=== PATIENT | male | born 1990 | race African-American/Black ===

== ENCOUNTER 2017-12-15 14:02 | Emergency (ER) | payer OTHER ==
[~2017-12-15] VITALS: Ht 182.9 cm; Wt 68.0 kg
[2017-12-15] MEDS ORDERED: IV NORMAL SALINE 1000ML BAG 1,000 ML IV ONE (14:15)
[2017-12-15 14:24] LABS: BASO % 1 % (0-3); EOS % 0 % (0-3); HEMATOCRIT 40.2 % (39.0-53.0); HEMOGLOBIN 14.2 g/dL (13.0-17.5); LYMPH # 0.6 x10^3/uL (1.0-4.8); LYMPH % 10 % (24-48); MEAN CORPUSCULAR HEMOGLOBIN 33 pg (25-35); MEAN CORPUSCULAR HGB CONC 35 g/dL (31-37); MEAN CORPUSCULAR VOLUME 94 fL (79-100); MONO # 0.3 x10^3/uL (0.0-1.1); MONO % 5 % (0-9); NEUT # 5.1 x10^3uL (1.8-7.7); NEUT % 85 % (31-73); PLATELET COUNT 170 x10^3/uL (140-400); RED BLOOD COUNT 4.29 x10^6/uL (4.30-5.70); RED CELL DISTRIBUTION WIDTH 14.1 % (11.5-14.5)
[2017-12-15 14:32] LABS: CALCIUM 8.8 mg/dL (8.5-10.1); GFR 108.5; POTASSIUM 4.2 mmol/L (3.5-5.1)
[2017-12-15 14:39] LABS: ALBUMIN 3.6 g/dL (3.4-5.0); ALBUMIN/GLOBULIN RATIO 1.3 (1.0-1.7); TOTAL BILIRUBIN 0.7 mg/dL (0.2-1.0); TOTAL PROTEIN 6.4 g/dL (6.4-8.2)
--- NOTE | 2017-12-15 15:14 | RAD ---
CT head and cervical spine without contrast 12/15/2017 Clinical indications: New onset seizure. COMPARISON: None. TECHNIQUE: Multiple CT images of the head and cervical spine were obtained without contrast. *One or more of the following individualized dose reduction techniques were utilized for this examination: 1. Automated exposure control. 2. Adjustment of the mA and/or kV according to patient size. 3. Use of iterative reconstruction technique. FINDINGS: Head: No acute intracranial hemorrhage or extra-axial fluid collection. No midline shift. The stevens-white matter interfaces are maintained. The ventricles and subarachnoid spaces are normal in size and configuration for age. The visualized mastoid air cells and paranasal sinuses are well aerated. Cervical spine: No acute cervical spine fracture or traumatic malalignment. There is minimal rightward curvature, may be positional. Atlantoaxial articulation is maintained. Vertebral body heights and disc spaces are preserved. The paraspinal soft tissues are unremarkable. IMPRESSION: Head: No acute intracranial hemorrhage. Cervical spine: No acute cervical spine fracture or traumatic malalignment. Electronically signed by: Christian He MD (12/15/2017 3:10 PM) [id number]
[2017-12-15 15:38] LABS: BARBITURATES NEG (NEG); BENZODIAZEPINES NEG (NEG); CANNABINOIDS NEG (NEG); COCAINE NEG (NEG); METHADONE NEG (NEG); OPIATES NEG (NEG); PHENCYCLIDINE NEG (NEG)
[2017-12-15 15:40] LABS: AMPHETAMINE/METHAMPHETAMINE NEG (NEG)
--- NOTE | 2017-12-15 15:57 | PHYS DOC ---
Past Medical History Past Medical History: No Pertinent History Past Surgical History: No Surgical History Alcohol Use: None Drug Use: None Adult General Chief Complaint Chief Complaint: SEIZURE HPI HPI Patient is a 27 year old male presenting with seizure. Brought in by ambulance had a witnessed 7 minute seizure at the [facility]. Apparently according to the report that I received from the medics the patient did tell a staff member at the [facility] that he was high however then when he came out of the seizure he then denied it Unknown if there was any drug use definitively. No previous seizure history. Patient denies any pain or symptoms at this time he did bump his head so c- collar was placed no previous history of seizures Review of Systems Review of Systems Constitutional: Denies fever or chills [] Eyes: Denies change in visual acuity, redness, or eye pain [] HENT: Denies nasal congestion or sore throat [] Respiratory: Denies cough or shortness of breath [] Cardiovascular: No additional information not addressed in HPI [] Musculoskeletal: Denies back pain or joint pain [] Integument: Denies rash or skin lesions [] Neurologic: Denies headache, focal weakness or sensory changes [] All other systems were reviewed and found to be within normal limits, except as documented in this note. Current Medications Current Medications Current Medications Medications (Trade) Dose Ordered Sig/Maco Start Time Stop Time Status Last Admin Dose Admin Lorazepam (Ativan) 1 mg 1X ONCE 12/15/17 14:15 12/15/17 14:26 DC 12/15/17 14:49 1 MG Sodium Chloride 1,000 ml @ 1,000 mls/hr 1X ONCE 12/15/17 14:15 12/15/17 15:14 DC 12/15/17 14:49 1,000 MLS/HR Allergies Allergies Allergies Coded Allergies Type Severity Reaction Last Updated Verified No Known Drug Allergies 12/15/17 No Physical Exam Physical Exam Constitutional: Well developed, well nourished, no acute distress, non-toxic appearance. [] HENT: Normocephalic, contusion noted to the forehead c-collar is in place, bilateral external ears normal, oropharynx moist, no oral exudates, nose normal. [] Eyes: PERRLA, EOMI, conjunctiva normal, no discharge. [] Neck: Normal range of motion after the c-collar was removed Pulmonary: Normal respiratory effort no increased work of breathing no obvious chest wall trauma Abdomen: Bowel sounds normal, soft, no tenderness, no masses, no pulsatile masses. [] Skin: Warm, dry, no erythema, no rash. [] Back: No tenderness, no CVA tenderness. [] Extremities: No tenderness, no cyanosis, no clubbing, ROM intact, no edema. [] Neurologic: Alert and oriented X 3, normal motor function, normal sensory function, no focal deficits noted. [] Psychologic: Affect normal, judgement normal, mood normal. [] Current Patient Data Vital Signs Vital Signs Date Time Temp Pulse Resp B/P (MAP) Pulse Ox O2 Delivery O2 Flow Rate FiO2 12/15/17 14:02 98.6 76 20 90/49 (63) 97 Room Air 98.6 Lab Values Laboratory Tests Test 12/15/17 14:14 12/15/17 15:21 White Blood Count 6.0 x10^3/uL (4.0-11.0) Red Blood Count 4.29 x10^6/uL (4.30-5.70) L Hemoglobin 14.2 g/dL (13.0-17.5) Hematocrit 40.2 % (39.0-53.0) Mean Corpuscular Volume 94 fL (79-100) Mean Corpuscular Hemoglobin 33 pg (25-35) Mean Corpuscular Hemoglobin Concent 35 g/dL (31-37) Red Cell Distribution Width 14.1 % (11.5-14.5) Platelet Count 170 x10^3/uL (140-400) Neutrophils (%) (Auto) 85 % (31-73) H Lymphocytes (%) (Auto) 10 % (24-48) L Monocytes (%) (Auto) 5 % (0-9) Eosinophils (%) (Auto) 0 % (0-3) Basophils (%) (Auto) 1 % (0-3) Neutrophils # (Auto) 5.1 x10^3uL (1.8-7.7) Lymphocytes # (Auto) 0.6 x10^3/uL (1.0-4.8) L Monocytes # (Auto) 0.3 x10^3/uL (0.0-1.1) Eosinophils # (Auto) 0.0 x10^3/uL (0.0-0.7) Basophils # (Auto) 0.0 x10^3/uL (0.0-0.2) Sodium Level 142 mmol/L (136-145) Potassium Level 4.2 mmol/L (3.5-5.1) Chloride Level 105 mmol/L (98-107) Carbon Dioxide Level 28 mmol/L (21-32) Anion Gap 9 (6-14) Blood Urea Nitrogen 9 mg/dL (8-26) Creatinine 1.0 mg/dL (0.7-1.3) Estimated GFR (Cockcroft-Gault) 108.5 BUN/Creatinine Ratio 9 (6-20) Glucose Level 115 mg/dL (70-99) H Calcium Level 8.8 mg/dL (8.5-10.1) Total Bilirubin 0.7 mg/dL (0.2-1.0) Aspartate Amino Transferase (AST) 21 U/L (15-37) Alanine Aminotransferase (ALT) 24 U/L (16-63) Alkaline Phosphatase 46 U/L (46-116) Total Protein 6.4 g/dL (6.4-8.2) Albumin 3.6 g/dL (3.4-5.0) Albumin/Globulin Ratio 1.3 (1.0-1.7) Ethyl Alcohol Level < 10 mg/dL (0-10) Urine Opiates Screen Neg (NEG) Urine Methadone Screen Neg (NEG) Urine Barbiturates Neg (NEG) Urine Phencyclidine Screen Neg (NEG) Urine Amphetamine/Methamphetamine Neg (NEG) Urine Benzodiazepines Screen Neg (NEG) Urine Cocaine Screen Neg (NEG) Urine Cannabinoids Screen Neg (NEG) Urine Ethyl Alcohol Neg (NEG) Laboratory Tests 12/15/17 14:14 Laboratory Tests 12/15/17 14:14 EKG EKG [] Radiology/Procedures Radiology/Procedures [] Impressions: FINDINGS: Head: No acute intracranial hemorrhage or extra-axial fluid collection. No midline shift. The stevens-white matter interfaces are maintained. The ventricles and subarachnoid spaces are normal in size and configuration for age. The visualized mastoid air cells and paranasal sinuses are well aerated. Cervical spine: No acute cervical spine fracture or traumatic malalignment. There is minimal rightward curvature, may be positional. Atlantoaxial articulation is maintained. Vertebral body heights and disc spaces are preserved. The paraspinal soft tissues are unremarkable. IMPRESSION: Head: No acute intracranial hemorrhage. Cervical spine: No acute cervical spine fracture or traumatic malalignment. Electronically signed by: Estiven He MD (12/15/2017 3:10 PM) [id number] DICTATED and SIGNED BY: ESTIVEN HE MD DATE: 12/15/17 1507 Course & Med Decision Making Course & Med Decision Making Pertinent Labs and Imaging studies reviewed. (See chart for details) []Labs unremarkable patient is calm and cooperative while in the emergency room CT head was negative. This was a new seizure. The patient is incarcerated. I did instruct the patient that he is not allowed to drive until cleared by a neurologist in the future. Because of her seizure and there is a possible history of drug abuse of note the drug screen did come back negative but there are several types of intoxicants that could be drug screen negative and still be due to seizure Because of that and the fact that he has never had a seizure before I don't think he needs seizure medication at this time. Patient transferred back to custody discharge from the ER Aide Disclaimer Aide Disclaimer This electronic medical record was generated, in whole or in part, using a voice recognition dictation system. Departure Departure Impression: Primary Impression: Seizure Disposition: 05 TRANSFER OTHER Condition: STABLE Referrals: SORAIDA LONG MD Patient Instructions: Seizure, Adult, [id number] STEPHANIE SIMMONS MD Dec 15, 2017 15:57
[2017-12-15 16:03] VITALS: BP 119/68
== END 2017-12-15 16:05 | disposition short-term general hospital (02) ==
LOC: EEVIPCON 14:02 → ER 14:02
DX: R56.9 Unspecified convulsions (principal); S00.83XA Contusion of other part of head, initial encounter; X58.XXXA Exposure to other specified factors, initial encounter; Y93.89 Activity, other specified; Y92.89 Other specified places as the place of occurrence of the external cause; Y99.2 Volunteer activity
CPT/HCPCS: 36415; 70450; 72125; 80053; 80307; 85025; 96374; 99285; G0480; J2060; J7030; 96361